=== PATIENT | male | born 1995 | race Caucasian/White ===

== ENCOUNTER 2024-02-18 17:54 | Emergency (ER) | payer OTHER, SELFPAY ==
--- NOTE | ~2024-02-18 | XR_ITS ---
EXAMINATION: XR chest 2V Exam Date/Time: 02/18/2024 18:20 CDT HISTORY: LEFT SIDED CHEST PAIN Comparison: None. RESULT: Lines, tubes, and devices: None. Lungs and pleura: Clear. Cardiomediastinal silhouette: Normal. Other: No acute osseous or upper abdominal finding. IMPRESSION: No acute cardiopulmonary process. Reviewed, dictated and finalized at location K.
--- NOTE | 2024-02-18 17:57 | ECG_ITS ---
SEE SCANNED COPY FOR CONFIRMED REPORT MTDD
[2024-02-18 18:07] VITALS: BP 150/96; PULSE 84; RESP 16; TEMP 36.6; O2SAT 100
[2024-02-18 18:19] LABS: Basophils Absolute Auto 0.1 K/mm3 (0.0-0.1); Basophils Percent Auto 0.9 % (0.2-1.2); Eosinophils Absolute Auto 0.1 K/mm3 (0-0.3); Hematocrit 46.1 % (42.0-52.0); Immature Granulocyte Absolute 0.01 K/mm3 (0.00-0.031); Immature Granulocyte Percent A 0.1 % (0-0.5); Lymphocytes Absolute Auto 2.21 K/mm3 (0.9-3.2); Lymphocytes Percent Auto 32.4 % (18.3-44.2); Mean Corpuscular HGB Conc 34.7 g/dl (32-36); Mean Corpuscular Hemoglobin 31.9 pg (26-34); Mean Corpuscular Volume 91.8 fl (80-100); Mean Platelet Volume 10.6 fl (7.4-10.4); Monocytes Absolute Auto 0.5 K/mm3 (0.1-0.6); Monocytes Percent Auto 6.9 % (2.6-8.5); Neutrophils Absolute Auto 3.9 K/mm3 (1.3-6.7); Neutrophils Percent Auto 57.7 % (45.5-73.1); Platelet Count Result 248 k/mm3 (150-375); Red Blood Count 5.02 M/mm3 (4.6-6.20); Red Cell Distribution Width 12.7 % (11.5-14.5); White Blood Count 6.8 K/mm3 (4.5-10.0)
[2024-02-18 18:35] LABS: INR 0.9; Prothrombin Time 12.7 Seconds (11.1-14.7)
[2024-02-18 18:36] LABS: Partial Thromboplastin Time 25.5 Seconds (22.3-36.8)
[2024-02-18 18:54] LABS: Alanine Aminotransferase 28 U/L (6-50); Albumin Level 4.8 g/dL (3.5-5.1); Alkaline Phosphatase 55 U/L (38-126); Anion Gap 10 mmol/L (4-12); Aspartate Amino Transferase 25 U/L (17-59); Bilirubin,Total 0.9 mg/dL (0.2-1.3); Blood Urea Nitrogen 16 mg/dL (9-20); Calcium 10.1 mg/dL (8.4-10.2); Carbon Dioxide 24 mmol/L (22-30); Chloride 105 mmol/L (98-107); Estimated CRCL calculation 82 ml/min; Estimated Glomerular Filt Rate > 60; Glucose 98 mg/dL (65-110); Lipase 178 U/L (23-300); Sodium 139 mmol/L (137-145); Troponin I < 0.012 ng/mL (0.000-0.034)
--- NOTE | 2024-02-18 19:12 | ED.GENADULT ---
HPI - General Adult General Chief complaint: Chest Pain <Jenifer Freed February, - Last Filed: 02/18/24 19:17> Stated complaint: L SIDED CHEST PAIN INT X1YEAR <Jenifer Freed February, - Last Filed: 02/18/24 19:17> Time Seen by Provider: 02/18/24 19:12 <Jenifer Freed February, - Last Filed: 02/18/24 19:17> Focused HPI: Corby Velez is a 28 y/o male who presents today with reports of having left sided chest pain started at 0700 while at rest, he states that while he was driving home at around [id number] the pain started to radiate down his left arm and up into his left side of his neck and jaw. Denies SOB / but reports feeling tired. Rates chest soreness at this time at a 5/10 and he can feel it in his back/ shoulder blade cardiac disease runs on both sides of his family GENERAL: Well-appearing, well-nourished, and in no acute distress. HEAD: Normocephalic, atraumatic. CHEST: Clear to auscultation. ?No respiratory distress. HEART: Regular rate and rhythm.? NEURO: ?Alert and oriented x3. Patient screened in triage and initial orders placed.? ?Additional care and disposition to be based upon?diagnostic testing and treatment. <Jenifer Freed February, - Last Filed: 02/18/24 19:17> History of Present Illness HPI narrative: 28-year-old male with no prior medical history presents to emergency department for intermittent chest pain for 1 year, worsening over the past few days. Patient states he has noticed intermittent pain in the left anterior lateral chest wall the past year. He has been evaluated previously and has been told that it is likely GI related or musculoskeletal. States he is taking high-dose ibuprofen for while which seem to improve it. States today while he was driving around 1500 he began having pain in that left anterior lateral aspect of his chest wall with associated pain in his left neck and left antecubital fossa that radiated down his fingers. He denies associated shortness of breath, lightheadedness, nausea or vomiting, diaphoresis or abdominal pain. States he works out frequently and has not noticed an exertional component of chest pain. States he has also not noticed a correlation with eating. States he uses a vape but does not smoke tobacco. Denies cough or congestion, fever, lower extremity edema, hemoptysis, history of VTE. He does endorse cardiac history on both sides of his family. Patient is in the and recently transferred to [place], states [place] met with them yet. He has not been evaluated by Cardiology. <Grace Haines PA-C - Last Filed: 02/18/24 23:43> Related Data Allergies/adverse reactions: Allergies Allergy/AdvReac Type Severity Reaction Status Date / Time No Known Allergies Allergy Verified 02/18/24 22:16 <Jenifer Murray APRN - Last Filed: 02/18/24 19:17> Review of Systems Review of Systems: CONSTITUTIONAL: Denies fever, chills, or sweats. EYES: Denies visual changes, redness, or discharge. ENT: Denies rhinorrhea, congestion, sore throat, or otalgia. CARDIOVASCULAR: See HPI RESPIRATORY: Denies cough or dyspnea. GASTROINTESTINAL: Denies abdominal pain, nausea, vomiting, or diarrhea. GENITOURINARY: Denies dysuria or hematuria. SKIN: Denies rash or itching. MUSCULOSKELETAL: Denies back pain, joint pain, or myalgia. NEUROLOGIC: Denies headache, numbness, or weakness. PSYCHIATRIC: Denies anxiety or depression. <Grace Haines PA-C - Last Filed: 02/18/24 23:43> [facility] Family History Family History: Family History Mother Patient's mother is in good health Father Patient's father is in good health <Jenifer Murray, [employer]IST - Last Filed: 02/18/24 19:17> Social History Social History: Social History Smoking status: Never smoker Alcohol intake: never <Jenifer Murray,
[2024-02-18 20:26] LABS: D Dimer < 0.27 ug/mL (<0.48)
--- NOTE | 2024-02-18 22:09 | ECG_ITS ---
SEE SCANNED COPY FOR CONFIRMED REPORT MTDD
[2024-02-18 22:38] LABS: Troponin I < 0.012 ng/mL (0.000-0.034)
[2024-02-18 23:02] VITALS: BP 122/81; PULSE 62; RESP 20; O2SAT 97
[2024-02-18 23:28] VITALS: BP 122/81; PULSE 69; RESP 19; O2SAT 100
[2024-02-18 23:46] VITALS: BP 128/85; PULSE 64; RESP 17; O2SAT 98
[2024-02-19] MEDS: IBUPROFEN 400 MG TABLET 800 MG PO (00:14)
== END 2024-02-19 00:21 | disposition home or self-care (01) ==
PROVIDERS: Emergency Medicine; Nurse Practitioner Family; Emergency Provider Physician Assistant
DX: R07.89 Other chest pain (principal); R94.31 Abnormal electrocardiogram [ECG] [EKG]
CPT/HCPCS: 36415; 71046; 80053; 83690; 84484; 85025; 85380; 85610; 85730; 93005; 99284; A9270